=== PATIENT | male | born 1945 | race Caucasian/White ===

== ENCOUNTER 2019-07-03 09:46 | Day surgery (SDC) | payer OTHER, MEDICARE ==
[~2019-07-03 09:46] MED LIST: Lactated Ringers 1,000 ML IV SCH; Sodium Chloride 0.9% 10 ML SDV IV PRN; Sodium Chloride 0.9% 10 ML Syringe FLUSH PRN; Sodium Chloride 0.9% 2.5 ML Syringe FLUSH PRN; ceFAZolin 2 GM in Premix Bag 1 BAG IV ONE
--- NOTE | 2019-07-03 10:07 | PCM.PREANE ---
Preanesthetic Assessment - Anesthesia/Transfusion/Family Hx Anesthesia History: Prior Anesthesia Without Reaction Family History of Anesthesia Reaction: No Transfusion History: No Prior Transfusion(s) Intubation History: Unknown - Review of Systems General: No Symptoms Pulmonary: No Symptoms Cardiovascular: No Symptoms Gastrointestinal: No Symptoms Neurological: No Symptoms Other: Reports: None - Physical Assessment Vital Signs: Last Vital Signs Temp 36.2 C 07/03/19 09:58 Pulse 60 07/03/19 09:58 Resp 16 07/03/19 09:58 BP 158/75 H 07/03/19 09:58 Pulse Ox 97 07/03/19 09:58 Height: 5 ft 10 in Weight: 82.554 kg ASA Class: 2 Mental Status: Alert & Oriented x3 Airway Class: Mallampati = 3 Dentition: Reports: Dentures (upper) Thyro-Mental Finger Breadths: 2 Mouth Opening Finger Breadths: 2 ROM/Head Extension: Limited/Partial Lungs: Clear to Auscultation, Normal Respiratory Effort Cardiovascular: Regular Rate, Regular Rhythm - Allergies Allergies/Adverse Reactions: Allergies Allergy/AdvReac Type Severity Reaction Status Date / Time No Known Allergies Allergy Verified 06/28/19 12:14 - Blood Blood Available: No - Anesthesia Plan Pre-Op Medication Ordered: None - Acknowledgements Anesthesia Type Planned: General Anesthesia Pt an Appropriate Candidate for the Planned Anesthesia: Yes Alternatives and Risks of Anesthesia Discussed w Pt/Guardian: Yes Pt/Guardian Understands and Agrees with Anesthesia Plan: Yes PreAnesthesia Questionnaire HEENT History: Reports: Other (See Below) Other HEENT History: wears glasses, has upper denture Cardiovascular History: Reports: Hypertension Other Cardiovascular History: started Cardura on 06/28/19 Genitourinary History: Reports: BPH - Past Surgical History Head Surgeries/Procedures: Reports: None Musculoskeletal Surgical History: Reports: Arthroscopic Knee - SUBSTANCE USE Smoking Status *Q: Never Smoker Recreational Drug Use History: No - HOME MEDS Home Medications: Home Meds Doxazosin Mesylate [Cardura] 2 mg PO DAILY 06/28/19 [History] Finasteride 5 mg PO DAILY 06/28/19 [History] - CURRENT (IN HOUSE) MEDS Current Meds: Current Medications Lactated Ringer's (Ringers, Lactated) 1,000 mls @ 100 mls/hr IV ASDIRECTED [facility] Last Admin: 07/03/19 10:05 Dose: 100 mls/hr Sodium Chloride (Saline Flush) 10 ml FLUSH ASDIRECTED PRN PRN Reason: Keep Vein Open Sodium Chloride (Saline Flush) 2.5 ml FLUSH ASDIRECTED PRN PRN Reason: Keep Vein Open Sodium Chloride (Normal Saline) 10 ml IV ASDIRECTED PRN PRN Reason: IV Use Discontinued Medications Cefazolin Sodium/Dextrose 2 gm (/ Premix) 50 mls @ 100 mls/hr IV ONCALL ONE Stop: 07/03/19 00:34
[2019-07-03] MEDS ORDERED: Propofol 200 MG/20 ML SDV ONE (11:29)
[2019-07-03] MEDS ORDERED: fentaNYL 100 MCG/2 ML SDV ONE (11:30)
[2019-07-03] MEDS ORDERED: Glycopyrrolate 0.2 MG/ML SDV ONE ×2 (11:30→15:02)
[2019-07-03] MEDS ORDERED: Rocuronium 100 MG/10 ML Syringe ONE (11:30)
[2019-07-03] MEDS ORDERED: ePHEDrine 50 MG/ML SDV ONE (11:30)
[2019-07-03] MEDS ORDERED: Neostigmine Methylsulfate 1 MG/ML 5 ML Syringe ONE (11:30)
[2019-07-03] MEDS ORDERED: Sodium Chloride 0.9% 20 ML ONE (11:30)
[2019-07-03] MEDS ORDERED: Midazolam 1 MG/ML 2 ML SDV ONE (11:30)
[2019-07-03] MEDS ORDERED: Phenylephrine/Normal Saline 100 MCG/ML 10 ML Syringe ONE (11:37)
[2019-07-03] MEDS ORDERED: Bupivacaine 0.5% 30 ML SDV ONE (13:55)
--- NOTE | 2019-07-03 15:30 | OR ---
SURGEON: Milan Crooks M.D. DATE OF PROCEDURE: 07/03/2019 PREOPERATIVE DIAGNOSIS: Right indirect inguinal hernia. POSTOPERATIVE DIAGNOSIS: Right indirect inguinal hernia. OPERATION: Right inguinal hernia repair. DESCRIPTION OF PROCEDURE: The patient was given general anesthesia. He was in the supine position. Anterior abdominal wall, external genital area were all prepped and draped in sterile drapes. A right groin incision was made, carried through the fascia into the inguinal canal. The cord structures were isolated from surrounding structures, including isolation from a good-sized hernia sac, which was submitted. The neck was closed with a 2-0 silk pursestring suture. The defect in the transversalis fascia was closed using the 0 silk sutures. Conjoint tendon was sutured to the reflection of the inguinal ligament using 2-0 silk. The cord structures were put back in place and the external oblique aponeurosis was reapproximated using 3-0 silk interrupted sutures. 3-0 chromic was used to reapproximate the subcutaneous tissue. Javid were used for the skin. Estimated blood loss was minimal, under 20 mL. The patient tolerated the procedure well. ELLA / BIBI /[id number]
[2019-07-03] MEDS ORDERED: fentaNYL 100 MCG/2 ML SDV IVPUSH PRN (15:41)
--- NOTE | 2019-07-03 15:57 | PCM.POSTAN ---
POST ANESTHESIA ASSESSMENT - MENTAL STATUS Mental Status: Alert, Oriented - VITAL SIGNS Vital Signs: Last Vital Signs Temp 36.6 C 07/03/19 15:15 Pulse 72 07/03/19 15:50 Resp 14 07/03/19 15:50 BP 123/75 07/03/19 15:50 Pulse Ox 93 L 07/03/19 15:50 - RESPIRATORY Respiratory Status: Respiratory Rate WNL, Airway Patent, O2 Saturation Stable - CARDIOVASCULAR CV Status: Pulse Rate WNL, Blood Pressure Stable - GASTROINTESTINAL GI Status: No Symptoms - PAIN Pain Score: 3 - POST OP HYDRATION Hydration Status: Adequate & Stable - OBSERVATIONS Free Text/Narrative:: no anesthesia problems
[2019-07-03] MEDS ORDERED: Acetaminophen/HYDROcodone 325-5 MG Tab PO PRN (16:53)
--- NOTE | 2019-07-03 17:30 | PCM48HPAN ---
Post Anesthesia Note - EVALUATION WITHIN 48HRS OF ANESTHETIC Vital Signs in Normal Range: Yes Patient Participated in Evaluation: Yes Respiratory Function Stable: Yes Airway Patent: Yes Cardiovascular Function Stable: Yes Hydration Status Stable: Yes Pain Control Satisfactory: Yes Nausea and Vomiting Control Satisfactory: Yes Mental Status Recovered: Yes Vital Signs: Last Vital Signs Temp 36.6 C 07/03/19 15:15 Pulse 53 L 07/03/19 16:30 Resp 14 07/03/19 16:30 BP 134/76 07/03/19 16:30 Pulse Ox 91 L 07/03/19 16:30 - COMMENTS/OBSERVATIONS Free Text/Narrative:: no anesthesia problems
[2019-07-04] MEDS ORDERED: Finasteride 5 MG Tab PO SCH (09:00)
[2019-07-04] MEDS ORDERED: Doxazosin 2 MG Tab PO SCH (09:00)
== END 2019-07-03 18:00 | disposition home or self-care (01) ==
LOC: MW.SDS 09:46
PROVIDERS: ATTEND Urology
DX: K40.90 Unilateral inguinal hernia, without obstruction or gangrene, not specified as recurrent (principal); I10 Essential (primary) hypertension; N40.1 Benign prostatic hyperplasia with lower urinary tract symptoms
CPT/HCPCS: 49505; 82962; A9270; J0330; J2250; J2370; J2704; J3010; J3490; J7120; 00830; 88302

== ENCOUNTER 2019-07-06 23:01 | Emergency (ER) | payer OTHER, MEDICARE ==
--- NOTE | 2019-07-07 01:17 | EDM.PDOC ---
ED [facility] GENERAL MEDICAL PROBLEM - General Chief Complaint: Genitourinary Problem Stated Complaint: BLOOD IN SCROTUM Time Seen by Provider: 07/07/19 00:15 Source of Information: Reports: Patient, Family History Limitations: Reports: No Limitations - History of Present Illness INITIAL COMMENTS - FREE TEXT/NARRATIVE: Patient is a 74-year-old male with a past medical history of hypertension, BPH, recent inguinal hernia surgery presenting with a chief complaint of testicular discoloration. Patient has had to wear an indwelling catheter ever since he developed urinary retention from the surgery. Patient notes some slight blood from the urethral meatus. The blood has been present since the catheter was inserted and has not worsened at all. Patient denies any pain to the scrotal area. Any systemic symptoms such as fever, chills, nausea, vomiting. Patient had normal bowel movement earlier today. In addition to that documented in the HPI above, the additional ROS was obtained : Constitutional: Denies fevers or chills Eyes: Denies vision changes ENMT: Denies sore throat CV: Denies chest pain Resp: Denies SOB GI: Denies vomiting or diarrhea : Denies painful urination MSK: Denies recent trauma Skin: Denies new rashes Neuro: Denies new numbness or tingling or weakness Endocrine: Denies unexpected weight loss Heme: Denies bleeding disorders I have reviewed the triage vital signs Const: Well nourished, well developed, appears stated age. Very comfortable in appearance Eyes: PERRL, no conjunctival injection HENT: NCAT, Neck supple without meningismus CV: RRR, Warm, well-perfused extremities RESP: CTAB, Unlabored respiratory effort GI: Surgical incision is clean dry and intact, no surrounding erythema. Approximated wound. Soft, non-tender, non-distended, no masses : SHAYLEE Zaldivar present for examination. Patient has indwelling catheter with scant blood around the meatus. Patient has no swelling of the scrotum. Patient has scant ecchymosis to the bottom of the scrotal area. No masses appreciated. Patient has minimal tenderness of the left testicle. Cremasteric reflex is intact. Testicular lie is within normal limits. MSK: No gross deformities appreciated Skin: Warm, dry. No rashes Neuro: Alert, restaurant expeditor II-XII grossly intact. Sensation and motor function of extremities grossly intact. Psych: Appropriate mood and affect - Related Data Allergies Allergy/AdvReac Type Severity Reaction Status Date / Time No Known Allergies Allergy Verified 07/06/19 23:25 Home Meds: Home Meds Doxazosin Mesylate [Cardura] 2 mg PO DAILY 06/28/19 [History] Finasteride 5 mg PO DAILY 06/28/19 [History] Acetaminophen/HYDROcodone [[place] 325-5 MG] 1 tab PO Q4H PRN 07/06/19 [History] Past Medical History HEENT History: Reports: Other (See Below) Other HEENT History: wears glasses, has upper denture Cardiovascular History: Reports: Hypertension Other Cardiovascular History: started Cardura on 06/28/19 Respiratory History: Reports: None Genitourinary History: Reports: BPH Neurological History: Reports: None Psychiatric History: Reports: None Endocrine/Metabolic History: Reports: None Hematologic History: Reports: None Immunologic History: Reports: None Oncologic (Cancer) History: Reports: None Dermatologic History: Reports: None - Infectious Disease History Infectious Disease History: Reports: None - Past Surgical History Head Surgeries/Procedures: Reports: None GI Surgical History: Reports: Hernia, Inguinal Musculoskeletal Surgical History: Reports: Arthroscopic Knee Social & Family History - Tobacco Use Smoking Status *Q: Never Smoker - Recreational Drug Use Recreational Drug Use: No ED ROS GENERAL - Review of Systems Review Of Systems: See Below ED EXAM, RENAL/ - Physical Exam Exam: See Below Course - Vital Signs Last Recorded V/S: Last Vital Signs Temp 35.8 C 07/06/19 23:22 Pulse 69 07/06/19 23:22 Resp 16 07/06/19 23:22 BP 156/81 H 07/06/19 23:22 Pulse Ox 92 L 07/06/19 23:22 - Orders/Labs/Meds Orders: Active Orders 24 hr Category Date Time Status CULTURE URINE [RM] Stat Lab 07/06/19 23:33 Received Labs: Laboratory Tests 07/06/19 Range/Units 23:33 Urine Color YELLOW Urine Appearance SLT CLOUDY Urine pH 5.5 (5.0-8.0) Ur Specific [place] 1.025 (1.001-1.035) Urine Protein TRACE H (NEGATIVE) mg/dL Urine Glucose (UA) NEGATIVE (NEGATIVE) mg/dL Urine Ketones NEGATIVE (NEGATIVE) mg/dL Urine Occult Blood LARGE H (NEGATIVE) Urine Nitrite NEGATIVE (NEGATIVE) Urine Bilirubin NEGATIVE (NEGATIVE) Urine Urobilinogen 0.2 (<2.0) EU/dL Ur Leukocyte Esterase SMALL H (NEGATIVE) Urine RBC 55-60 (0-2/HPF) Urine WBC 1-4 (0-5/HPF) Ur Epithelial Cells OCCASIONAL (NONE-FEW) Urine Bacteria RARE (NEGATIVE) Urine Mucus LIGHT (NONE-MOD) Departure - Departure Time of Disposition: 01:10 Disposition: Home, Self-Care 01 Condition: Good Clinical Impression: Retention of urine - Discharge Information Instructions: Indwelling Urinary Catheter Care, Adult Referrals: PCP,None [Primary Care Provider] - Forms: ED Department Discharge Additional Instructions: The following information is given to patients seen in the emergency department who are being discharged to home. This information is to outline your options for follow-up care. We provide all patients seen in our emergency department with a follow-up referral. The need for follow-up, as well as the timing and circumstances, are variable depending upon the specifics of your emergency department visit. If you don't have a primary care physician on staff, we will provide you with a referral. We always advise you to contact your personal physician following an emergency department visit to inform them of the circumstance of the visit and for follow-up with them and/or the need for any referrals to a consulting specialist. The emergency department will also refer you to a specialist when appropriate. This referral assures that you have the opportunity for follow-up care with a specialist. All of these measure are taken in an effort to provide you with optimal care, which includes your follow-up. Under all circumstances we always encourage you to contact your private physician who remains a resource for coordinating your care. When calling for follow-up care, please make the office aware that this follow-up is from your recent emergency room visit. If for any reason you are refused follow-up, please contact the [facility] Emergency Department at and asked to speak to the emergency department charge nurse. Return immediately to the emergency department for fevers, increased swelling, increased pain to the scrotal area. Please follow-up with your urologist as soon as possible for reevaluation examination. Sepsis Event Note - Evaluation Sepsis Screening Result: No Definite Risk - Focused Exam Vital Signs: Vital Signs Temp Pulse Resp BP Pulse Ox 12/20/19 23:22 35.8 C 69 16 156/81 H 92 L Date Exam was Performed: 07/07/19 Time Exam was Performed: 01:10 - My Orders Last 24 Hours: My Active Orders 07/06/19 23:33 CULTURE URINE [RM] Stat - Assessment/Plan Last 24 Hours: My Active Orders 07/06/19 23:33 CULTURE URINE [RM] Stat Assessment:: Patient is 74-year-old male presenting with scrotal discoloration. Broad differential diagnosis was considered including testicular torsion, necrotizing fasciitis, urinary tract infection, traumatic scrotal injury, traumatic catheter insertion. Patient has normal vital signs, and is afebrile. In addition, patient does not have any pain, deformity of these diagnoses are much less likely. Patient's urinary analysis is not convincing for urinary tract infection. Patient instructed to follow-up with his urologist given strict return precautions for evidence of infection or more serious injury. Patient confirms understanding and agrees with plan.
== END 2019-07-07 01:25 | disposition home or self-care (01) ==
LOC: MW.ED 23:01
DX: R33.9 Retention of urine, unspecified (principal); I10 Essential (primary) hypertension; Z79.899 Other long term (current) drug therapy
CPT/HCPCS: 81001; 87086; 99283